=== PATIENT | female | born 1975 | race African-American/Black ===

== ENCOUNTER 2020-08-09 06:11 | Emergency (ER) | payer BC ==
[~2020-08-09] VITALS: Ht 172.7 cm; Wt 142.9 kg
[~2020-08-09 06:11] MED LIST: BIRTH CONTROL; FISH OIL 1,001000 M2 PO; NAPROSYN500 MG PO; OSELB75 PO; PRIMIDONE50 MG PO; TRAMADOL 50 MG50 MG PO; ZOFRAN ODT4 MG PO
[2020-08-09 11:15] VITALS: BP 123/71
== END 2020-08-09 11:37 | disposition home or self-care (01) ==
LOC: ER 06:11
DX: K59.00 Constipation, unspecified (principal); Z90.710 Acquired absence of both cervix and uterus; Z79.899 Other long term (current) drug therapy

== ENCOUNTER 2020-08-26 18:25 | Emergency (ER) | payer BC ==
[~2020-08-26] VITALS: Ht 172.7 cm; Wt 142.9 kg
[2020-08-26] MEDS ORDERED: CHLORTHALIDONE25 MG PO (18:41)
[2020-08-26] MEDS ORDERED: DIAZEPAM 5 MG5 M1 PO (18:41)
[2020-08-26] MEDS ORDERED: SUPER THERAVIT1 EACH PO (18:42)
[2020-08-26] MEDS ORDERED: ASA81BEC PO (18:42)
[2020-08-26] MEDS ORDERED: GABAPENTIN 100100 MG PO (18:42)
[2020-08-26] MEDS ORDERED: VITAMIN D310 MC1 PO (18:42)
[2020-08-26] MEDS ORDERED: PROBIOTIC1 EAC7 PO (18:43)
[2020-08-26] MEDS ORDERED: BENADRYL25 MG PO (18:43)
[2020-08-26] MEDS ORDERED: ZYRTEC10 M4 PO (18:43)
[2020-08-26] MEDS ORDERED: ACETAMINOPHEN500 M1 PO (18:46)
[2020-08-26] MEDS ORDERED: SSD CREAM 1% 5050 GM TOP (18:47)
[2020-08-26 19:54] LABS: CALCIUM 9.8 mg/dL (8.5-10.1); CREATININE 0.9 mg/dL (0.6-1.0); POTASSIUM 4.1 mmol/L (3.5-5.1)
[2020-08-26 19:57] LABS: APTT 25.7 Seconds (24.5-32.8); PROTIME 10.1 Seconds (9.3-11.4)
[2020-08-26 20:00] LABS: ALBUMIN 3.4 g/dL (3.4-5.0); TOTAL BILIRUBIN 0.3 mg/dL (0.2-1.0); TOTAL PROTEIN 7.3 g/dL (6.4-8.2)
[2020-08-26 20:07] LABS: ABSOLUTE NEUTROPHILS 5.2 thou/uL (1.4-8.2); BASOPHILS 0.6 % (0.0-2.0); EOSINOPHILS 1.7 % (0.0-3.0); HEMATOCRIT 39.4 % (37.0-47.0); HEMOGLOBIN 12.9 gm/dL (12.0-15.0); LYMPHOCYTES 28.9 % (24.0-44.0); MCH 29.2 pg (26.0-34.0); MCHC 32.8 g/dL (28.0-37.0); MONOCYTES 7.4 % (1.0-8.0); PLATELET COUNT 460 thou/uL (150-400); POLYS 61.4 % (36.0-66.0); RBC 4.42 mil/uL (4.20-5.00); RDW 15.3 % (10.5-14.5); WBC 8.4 thou/uL (4.0-11.0)
[2020-08-26] MEDS ORDERED: NORCO 5-325 TA1 EAC2 PO (21:06)
[2020-08-26 21:29] VITALS: BP 148/77
== END 2020-08-26 21:29 | disposition home or self-care (01) ==
LOC: ER 18:25
PROVIDERS: Physician Assistant
DX: T81.31XA Disruption of external operation (surgical) wound, not elsewhere classified, initial encounter (principal); Z90.710 Acquired absence of both cervix and uterus; Z79.82 Long term (current) use of aspirin; Z79.899 Other long term (current) drug therapy